=== PATIENT | female | born 1960 | race Caucasian/White ===

== ENCOUNTER 2018-04-17 15:15 | Day surgery (SDC) | payer OTHER ==
[2018-04-16 16:26] VITALS: BMI 32.1
[2018-04-17 16:01] LABS: BASO % 0.9 % (0-2.0); HEMATOCRIT 38.6 % (32.4-45.2); LYMPH % 23.4 % (8-40); MCH 31.4 pg (25.7-33.7); MCHC 33.6 g/dl (32.0-36.0); MEAN CELL VOLUME 93.3 fl (80-96); MEAN PLT VOLUME 7.8 fl (7.5-11.1); NEUT % 65.7 % (42.8-82.8); PLATELET COUNT 337 K/MM3 (134-434); RBC 4.13 M/mm3 (3.60-5.2); RDW 13.8 % (11.6-15.6); WHITE BLOOD COUNT 9.9 K/mm3 (4.0-10.0)
[2018-04-17 16:22] LABS: ALBUMIN 3.5 g/dl (3.4-5.0); ANION GAP 5 (8-16); BILIRUBIN,TOTAL 0.5 mg/dL (0.2-1.0); BLOOD UREA NITROGEN 21 mg/dL (7-18); CALCIUM 8.8 mg/dL (8.5-10.1); CHLORIDE 107 mmol/L (98-107); CO2 29 mmol/L (21-32); CREATININE 0.6 mg/dL (0.55-1.02); GLUCOSE,RANDOM 96 mg/dL (74-106); POTASSIUM 3.7 mmol/L (3.5-5.1); SGOT/AST 20 U/L (15-37); SGPT/ALT 38 U/L (12-78); SODIUM 141 mmol/L (136-145); TOT PROT 7.1 g/dl (6.4-8.2)
[2018-04-17 16:23] LABS: ALK PHOS 75 U/L (45-117)
[2018-04-17] MEDS ORDERED: MIDAZOLAM HCL 2 MG/2 ML SINGLE DOSE VIAL ONE (16:35)
[2018-04-17 16:41] LABS: INR 0.97 (0.82-1.09)
[2018-04-17] MEDS ORDERED: PROPOFOL 20 ML ONE (16:44)
[2018-04-17] MEDS ORDERED: DEXAMETHASONE SOD PHOSPHATE 4 MG/1 ML VIAL ONE (16:52)
--- NOTE | 2018-04-17 17:04 | HP ---
History & Physical Update - History History: No Change - Physical Physical: No Change - Assessment Assessment: No Change - Plan Plan: No Change (Pt insisted on Colposcopy, ECC under anesthesia)
--- NOTE | 2018-04-17 17:08 | OP ---
Operative Note - Note: Operative Date: 04/17/18 Pre-Operative Diagnosis: Cervical dysplasia, high risk HPV Operation: Colposcopy, dilation of cervical canal, ECC Findings: Severe cervicovaginal atrophy with cervix flush with vagina, stenotic cervical os Post-Operative Diagnosis: Same as Pre-op Surgeon: Tarik Szymanski Anesthesiologist/LEASING REPRESENTATIVE: Shaun Salazar Anesthesia: General Specimens Removed: Cervical bx x 4, ECC Estimated Blood Loss (mls): 2 Blood Volume Replaced (mls): 0 Fluid Volume Replaced (mls): 200 Operative Report Dictated: Yes
[2018-04-17 17:14] LABS: ACTIVATED PTT 40.3 SECONDS (25.2-36.5)
[2018-04-17 17:54] VITALS: TEMP 97.8
[2018-04-17 20:36] VITALS: BP 121/76; PULSE 66
--- NOTE | 2018-04-18 06:29 | OP ---
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 PROCEDURE: Colposcopy, dilatation of cervical canal, and a cervical curettage. SURGEON: Tarik Szymanski MD ANESTHESIOLOGIST: Shaun Salazar MD ANESTHESIA: General. COMPLICATIONS: None. PATHOLOGY: Cervical biopsy x4 fragments and endocervical curettage. ESTIMATED BLOOD LOSS: 2 mL. INTRAVENOUS FLUIDS: Crystalloid, 200 mL. FINDINGS: Examination under anesthesia revealed a very small uterus. The vagina appeared atrophic with severe cervical atrophy. The cervix appeared flush with the vagina. The cervical os was stenotic. DESCRIPTION OF PROCEDURE: The patient was met preoperatively. Risks, benefits, and alternatives of the planned procedure were discussed. All questions were answered. The patient was then brought to the OR with IV running. She was placed on the surgical table in the supine position. The general anesthesia was achieved without difficulty. The patient was then placed in a dorsal lithotomy position using adjustable Nithin stirrups. The time-out was conducted as per standard protocol. The patient was then examined under anesthesia with the findings as described above. The colposcopy was then undertaken. A sterile speculum was introduced inside th patients vagina. The entire vaginal canal was irrigated with vinegar solution (acetic acid 5%). The entire length of vagina and cervix were then inspected using colposcope. Lugols solution was then used on the cervix. There were no acetowhite lesions and no stigma of dysplasia noted. The cervical canal was noted to be stenotic. The cervix was then grasped with a single-tooth tenaculum. Gentle traction was applied. The cervical os was then gently dilated to accommodate size 13 Michel dilator. Once again, colposcopy was performed. There were no stigma of dysplasia. Endocervical curettage was then performed. All of the tissue was sent to pathology for evaluation. Once the procedure was completed, all of the instruments were removed. Good hemostasis was noted. Monsels solution and silver nitrate sticks were used to achieve excellent hemostasis. The patient was then returned to supine position. Sponge, lap, and needle counts were correct. The patient was transferred to the recovery room awake and in stable condition. Inessa [id number]
--- NOTE | 2018-04-19 16:13 | PATH ---
Surgical Pathology Report Patient Name: JUVENTINO RASHID [facility]. Rec. #: [id number] /Age/Gender: 1960 (Age: 58) / F Account: [id number] Location: [facility] SURGICAL Taken: 04/17/2018 Received: 04/18/2018 Reported: 04/19/2018 Physicians: Tarik Szymanski M.D. Specimen(s) Received A: CERVICAL BX 3:00 B: CERVICAL BX 6:00 C: CERVICAL BX 9:00 D: CERVICAL BX 12:00 E: ENDOCERVICAL CURETTINGS Clinical History Cervical dysplasia Final Diagnosis A. CERVICAL BIOPSY 3:00: CERVICAL INTRAEPITHELIAL NEOPLASIA GRADE 1 (SIHVAM 1). SEE COMMENT. B. CERVICAL BIOPSY 6:00: CERVICAL INTRAEPITHELIAL NEOPLASIA GRADE 1 (SHIVAM 1). SEE COMMENT. C. CERVICAL BIOPSY 9:00: CERVICAL INTRAEPITHELIAL NEOPLASIA GRADE 1 (SHIVAM 1). SEE COMMENT. D. CERVICAL BIOPSY 12:00: CERVICAL INTRAEPITHELIAL NEOPLASIA GRADE 1 (SHIVAM 1). SEE COMMENT. COMMENT: ECTOCERVICAL TISSUE ONLY IN THE SUBMITTED MATERIAL. SHIVAM 1 PRESENT AT DETACHED SQUAMOUS EPITHELIUM, MARGIN INVOLVEMENT BY SHIVAM 1 CANNOT BE ACCURATELY ASSESSED. E. ENDOCERVICAL CURETTINGS: FRAGMENTS OF METAPLASTIC SQUAMOUS EPITHELIUM AND UNREMARKABLE ENDOCERVICAL GLANDS. Electronically Signed Corinna Dalton M.D. Gross Description A. Received in formalin, labeled "cervical biopsy 3:00" is a huynh, irregular portion of soft tissue measuring 0.8 cm. in greatest dimension. The specimen is submitted in toto in one cassette. B. Received in formalin, labeled "cervical biopsy 6:00" is a huynh, irregular portion of soft tissue measuring 0.5 cm. in greatest dimension. The specimen is submitted in toto in one cassette. C. Received in formalin, labeled "cervical biopsy 9:00" is a huynh, irregular portion of soft tissue measuring 0.8 cm. in greatest dimension. The specimen is submitted in toto in one cassette. D. Received in formalin, labeled "cervical biopsy 12:00" is a huynh, irregular portion of soft tissue measuring 0.8 cm. in greatest dimension. The specimen is submitted in toto in one cassette. E. Received in formalin labeled "endocervical curettage," is a 0.7 x 0.6 x 0.1 cm aggregate of huynh-brown soft tissue fragments admixed with mucus. The formalin is filtered and the specimen is entirely submitted in one cassette. 04/18/201804/18/2018
== END 2018-04-17 19:15 | disposition home or self-care (01) ==
LOC: JASU-SURG 15:15
PROVIDERS: ATTEND Obstetrics & Gynecology
PROC: 0UJH8ZZ Inspection of Vagina and Cul-de-sac, Via Natural or Artificial Opening Endoscopic (ICD-10-PCS; 2018-04-17)
PROC: 0UDB7ZX Extraction of Endometrium, Via Natural or Artificial Opening, Diagnostic (ICD-10-PCS; principal; 2018-04-17 15:30)
DX: N87.0 Mild cervical dysplasia (principal); R87.810 Cervical high risk human papillomavirus (HPV) DNA test positive
CPT/HCPCS: 36415; 80053; 84703; 85025; 85610; 85730; 86850; 86900; 86901; 88305-TC

== ENCOUNTER 2018-04-24 16:23 | Emergency (ER) | payer OTHER ==
--- NOTE | 2018-04-24 16:39 | PDOC ---
Rapid Medical Evaluation Time Seen by Provider: 04/24/18 16:36 Medical Evaluation: Allergies Allergy/AdvReac Type Severity Reaction Status Date / Time No Known Allergies Allergy Verified 04/17/18 16:13 I have performed a brief in-person evaluation of this patient. The patient presents with a chief complaint of: vaginal bleeding. Had a vaginal biopsy on 04/17/18. Had some watery vaginal discharge, but today it became bloody. He called Dr. Szymanski and she was told to come here because Dr. Szymanski was not in the office. She is not on a blood thinner. Pertinent physical exam findings: none I have ordered the following: UA, labs, transvaginal ultrasound The patient will proceed to the ED for further evaluation. Discharge Disposition - Diagnosis Vaginal bleeding - Referrals - Patient Instructions - Post Discharge Activity
[2018-04-24 16:41] VITALS: BP 156/85; PULSE 86; TEMP 98.1; BMI 32.1
--- NOTE | 2018-04-24 16:57 | PDOC ---
History of Present Illness - General Chief Complaint: Vaginal Sxs Stated Complaint: PCP SENT Time Seen by Provider: 04/24/18 16:36 History Source: Patient Exam Limitations: No Limitations - History of Present Illness Initial Comments: 04/24/18 16:59 58 yr female sent by for eval of vaginal bleeding with cramping started today. Pt states LMP "many years, over 10 yrs ago". Pt most recently had cervical biopsy on 04/17/18 with clear drainage noted up until today when she started to have bloody discharge. no back pain no dizzyness or shortness of breath. Past History - Past Medical History Allergies/Adverse Reactions: Allergies Allergy/AdvReac Type Severity Reaction Status Date / Time No Known Allergies Allergy Verified 04/24/18 16:37 Home Medications: Ambulatory Orders Amoxicillin/Potassium Clav [Augmentin 875-125 Tablet] 1 each PO BID 04/24/18 Anemia: No Asthma: Yes ("mild") Cancer: No Cardiac Disorders: No CVA: No COPD: No CHF: No Dementia: No Diabetes: No GI Disorders: No Disorders: No HTN: No Hypercholesterolemia: No Liver Disease: Yes (fatty liver) Seizures: No Thyroid Disease: No - Surgical History Orthopedic Surgery: Yes (right bunion sx 2001,2003,2008) - Immunization History Immunization Up to Date: Yes - Suicide/Smoking/Psychosocial Hx Smoking Status: No Smoking History: Never smoked Number of Cigarettes Smoked Daily: 0 Information on smoking cessation initiated: No Hx Alcohol Use: No Drug/Substance Use Hx: No Substance Use Type: Alcohol Hx Substance Use Treatment: No Review of Systems - Review of Systems Able to Perform ROS?: Yes Is the patient limited Latvian proficient: No Constitutional: No: Symptoms Reported HEENTM: No: Symptoms Reported Respiratory: No: Symptoms reported Cardiac (ROS): No: Symptoms Reported ABD/GI: Yes: Symptoms Reported *Physical Exam - Vital Signs Last Vital Signs Temp Pulse Resp BP Pulse Ox 98.1 F 86 18 156/85 98 04/24/18 16:38 04/24/18 16:38 04/24/18 16:38 04/24/18 16:38 04/24/18 16:38 - Physical Exam General Appearance: Yes: Nourished, Appropriately Dressed HEENT: positive: EOMI, SOPHIA Neck: positive: Supple Respiratory/Chest: positive: Lungs Clear, Normal Breath Sounds Cardiovascular: positive: Regular Rhythm, Regular Rate Female Pelvic Exam: positive: normal external exam, vaginal bleeding. negative : CMT, discharge Gastrointestinal/Abdominal: positive: Tender (suprapubic tenderness), Soft Musculoskeletal: positive: Normal Inspection Extremity: positive: Normal Capillary Refill, Normal Inspection, Normal Range of Motion Integumentary: positive: Normal Color, Dry, Warm Neurologic: positive: financial planning advisor II-XII NML intact, Fully Oriented, Alert, Normal Mood/ Affect, Normal Response, Motor Strength 03/02 ED Treatment Course - Consult/PCP Time Called: 17:04 Case discussed with personal care physician: Tarik Szymanski Consult Reason/Comments: case discussed with Medical Decision Making - Medical Decision Making 04/24/18 16:55 cc: vaginal bleeding with cramping started today 04/17/18 had cervical biopsy by denies weakness or dizzyness 04/24/18 17:18 case discussed with will check labs, use silver nitrite to cauterize the area in the cervix that is bleeding no physical activity until cleared by . 04/24/18 17:19 *DC/Admit/Observation/Transfer Diagnosis at time of Disposition: Vaginal bleeding - Referrals Referrals: Tarik Szymanski MD [Staff Physician] - - Patient Instructions Additional Instructions: follow with call his office tomorrow to make a sooner appointment no physical activity use pads for the bleeding take motrin for cramping return to ER for any heavy bleeding with clots, severe abd pain , weakness or any other concerns - Post Discharge Activity
[2018-04-24 17:49] LABS: BASO % 0.8 % (0-2.0); EOS % 5.3 % (0-4.5); HEMATOCRIT 40.7 % (32.4-45.2); HEMOGLOBIN 13.6 GM/dL (10.7-15.3); LYMPH % 17.5 % (8-40); MCH 30.9 pg (25.7-33.7); MCHC 33.4 g/dl (32.0-36.0); MEAN CELL VOLUME 92.7 fl (80-96); MEAN PLT VOLUME 7.8 fl (7.5-11.1); MONO % 5.1 % (3.8-10.2); NEUT % 71.3 % (42.8-82.8); PLATELET COUNT 360 K/MM3 (134-434); RBC 4.39 M/mm3 (3.60-5.2); RDW 13.7 % (11.6-15.6); WHITE BLOOD COUNT 10.9 K/mm3 (4.0-10.0)
[2018-04-24 18:06] LABS: ALBUMIN 3.6 g/dl (3.4-5.0); ANION GAP 5 (8-16); BLOOD UREA NITROGEN 16 mg/dL (7-18); CALCIUM 8.9 mg/dL (8.5-10.1); CHLORIDE 106 mmol/L (98-107); CO2 30 mmol/L (21-32); CREATININE 0.6 mg/dL (0.55-1.02); GLUCOSE,RANDOM 95 mg/dL (74-106); POTASSIUM 3.7 mmol/L (3.5-5.1); SGOT/AST 25 U/L (15-37); SGPT/ALT 36 U/L (12-78); SODIUM 141 mmol/L (136-145)
[2018-04-24 18:07] LABS: ALK PHOS 92 U/L (45-117); BILIRUBIN,TOTAL 0.4 mg/dL (0.2-1.0); TOT PROT 7.2 g/dl (6.4-8.2)
== END 2018-04-24 18:29 | disposition home or self-care (01) ==
LOC: JERFT 16:23
PROC: 0W3R7ZZ Control Bleeding in Genitourinary Tract, Via Natural or Artificial Opening (ICD-10-PCS; principal; 2018-04-24)
DX: N99.820 Postprocedural hemorrhage of a genitourinary system organ or structure following a genitourinary system procedure (principal)
CPT/HCPCS: 36415; 80053; 85025; 99281-25

== ENCOUNTER 2021-01-27 21:02 | Emergency (ER) | payer OTHER ==
[2021-01-27 21:10] VITALS: BP 121/82; PULSE 95; TEMP 98.2; BMI 34.0
[2021-01-27] MEDS ORDERED: hydrOXYzine PAMOATE 25 MG CAPSULE (FP) PO ONE ×2 (21:38→21:40)
== END 2021-01-27 21:47 | disposition home or self-care (01) ==
LOC: JER 21:02 → JERFT 21:02
DX: F41.9 Anxiety disorder, unspecified (principal)
CPT/HCPCS: 99284-25

== ENCOUNTER 2021-12-12 04:13 | Day surgery (SDC) | payer OTHER ==
[2021-12-08 16:16] VITALS: BMI 34.9
[2021-12-12] MEDS ORDERED: oxyCODONE HCL 5 MG TABLET PO PRN (08:26)
[2021-12-12] MEDS ORDERED: ONDANSETRON 4 MG/2 ML VIAL IVPUSH PRN (08:26)
[2021-12-12] MEDS ORDERED: PROMETHAZINE HCL 25 MG/1 ML VIAL IVPUSH PRN (08:26)
[2021-12-12] MEDS ORDERED: LACTATED RINGERS SOLUTION 1,000 ML IV SCH (08:30)
[2021-12-12] MEDS ORDERED: PROPOFOL 20 ML ONE ×2 (08:43)
[2021-12-12] MEDS ORDERED: MIDAZOLAM HCL 2 MG/2 ML SINGLE DOSE VIAL ONE (08:43)
[2021-12-12] MEDS ORDERED: GLYCOPYRROLATE 0.2 MG/1 ML VIAL ONE (08:44)
[2021-12-12] MEDS ORDERED: ceFAZolin 2 GRAM PREMIX BAG IVPB ONE (08:46)
[2021-12-12] MEDS ORDERED: LIDOCAINE HCL/PF 2% SDV 5ML VIAL ONE (09:38)
[2021-12-12] MEDS ORDERED: ceFAZolin SODIUM 1 GM VIAL ONE (09:39)
[2021-12-12] MEDS ORDERED: SODIUM CHLORIDE 0.9% P/F 10 ML VIAL IJ ONE (09:39)
[2021-12-12] MEDS ORDERED: ONDANSETRON 4 MG/2 ML VIAL ONE (09:48)
[2021-12-12] MEDS ORDERED: DEXAMETHASONE SOD PHOSPHATE 4 MG/1 ML VIAL ONE (09:48)
[2021-12-12] MEDS ORDERED: KETOROLAC TROMETHAMINE 30 MG/1 ML VIAL ONE (09:49)
[2021-12-12] MEDS ORDERED: ACETAMINOPHEN 1000 MG/100 ML BAG IVPB ONE (10:45)
[2021-12-12 15:06] VITALS: BP 138/67; PULSE 75; TEMP 96.9
== END 2021-12-12 14:10 | disposition home or self-care (01) ==
LOC: JASU-SURG 04:13
PROVIDERS: ATTEND Obstetrics & Gynecology
PROC: 0UDB7ZX Extraction of Endometrium, Via Natural or Artificial Opening, Diagnostic (ICD-10-PCS; principal; 2021-12-12 09:00)
PROC: 0UJD8ZZ Inspection of Uterus and Cervix, Via Natural or Artificial Opening Endoscopic (ICD-10-PCS; 2021-12-12 09:00)
DX: N95.0 Postmenopausal bleeding (principal)
CPT/HCPCS: 88305-TC; 94760